=== PATIENT | male | born 1945 | race Caucasian/White ===

== ENCOUNTER 2019-03-26 13:35 | Observation (INO) | payer MEDICARE ==
[~2019-03-26] VITALS: Ht 182.9 cm; Wt 68.0 kg
[2019-03-26 14:12] LABS: BASOPHILS % (AUTO) 0.4 % (0.0-5.0); EOSINOPHILS % (AUTO) 4.6 % (0.0-8.0); HEMATOCRIT 45.4 % (42-54); MEAN CORPUSCULAR HEMOGLOBIN 32.9 pg (27.0-33.0); MEAN CORPUSCULAR HGB CONC 33.9 g/dL (32.0-36.0); MONOCYTES % (AUTO) 8.3 % (3.0-13.0); NEUTROPHILS % (AUTO) 69.6 % (40.0-77.0); PLATELET COUNT (AUTO) 257 K/uL (130-400); RED BLOOD CELL COUNT(AUTO) 4.68 MIL/uL (4.50-6.20); RED CELL DISTRIBUTION WIDTH 11.8 % (11.0-15.5); WHITE BLOOD COUNT (AUTO) 7.8 K/uL (4.8-10.8)
[2019-03-26 14:24] LABS: CREATININE 0.8 mg/dL (0.5-1.5); POTASSIUM 3.3 mmol/L (3.5-5.1)
[2019-03-26 14:27] LABS: INR 1.04 (0.85-1.15); PARTIAL THROMBOPLASTIN TIME 30.8 SEC (26.3-35.5); PROTHROMBIN TIME 10.9 SEC (9.6-11.6)
[2019-03-26 14:30] LABS: BILIRUBIN,TOTAL 0.6 mg/dL (0.2-1.0); TOTAL PROTEIN, SERUM 7.4 g/dL (6.0-8.3)
[2019-03-26 14:34] LABS: B-TYPE NATRIURETIC PEPTIDE 27 pg/mL (0-100)
[2019-03-26] MEDS ORDERED: POTASSIUM CHLORIDE 10% ELIXIR 20 MEQ/15 ML UDCUP ONE (15:50)
[2019-03-26] MEDS ORDERED: KETOROLAC TROMETHAMINE 15MG/ML ONE (16:23)
[2019-03-26] MEDS ORDERED: MORPHINE SULFATE 2 MG/ML 1ML SYG IM PRN (17:00)
== END 2019-03-26 16:45 | disposition left against medical advice (07) ==
LOC: EDH 13:35 → EDHIP 15:23
PROVIDERS: ADMIT Internal Medicine Critical Care Medicine; ATTEND Internal Medicine Critical Care Medicine
DX: J39.2 Other diseases of pharynx (principal); R13.10 Dysphagia, unspecified; F17.200 Nicotine dependence, unspecified, uncomplicated; Z85.819 Personal history of malignant neoplasm of unspecified site of lip, oral cavity, and pharynx
CPT/HCPCS: 36415; 71045; 80053; 82150; 82550; 83605; 83690; 83880; 84484; 85025; 85610; 85730; 87040 ×2; 87804 ×2; 93005; 99284; G0378; J1885

== ENCOUNTER → 2021-01-28 | Outpatient (CLI) | payer OTHER | END | disposition home or self-care (01) | LOC: OIH 14:23 | PROVIDERS: ATTEND Internal Medicine | DX: I08.3 Combined rheumatic disorders of mitral, aortic and tricuspid valves (principal); R94.31 Abnormal electrocardiogram [ECG] [EKG] | CPT/HCPCS: 93306; 93356 ==